=== PATIENT | male | born 1960 | race African-American/Black ===

== ENCOUNTER 2017-06-13 15:19 | Inpatient (IN) | payer OTHER ==
[~2017-06-13] VITALS: Ht 185.4 cm; Wt 91.2 kg
--- NOTE | ~2017-06-13 | HP ---
Unit #: [id number] #: [id number] Patient: TUCKER WHITING [id number] [facility] [address] [place] [address] [id number] I MR#: [id number] NAME: TUCKER WHITING ROOM: 73 Age: 57 Sex: M Admission Date: 06/13/2017 : 1960 Attending Physician: Emery Adkins M.D. Admitting Physician: Emery Adkins M.D. Primary Care Physician: Sonia Renteria M.D. HISTORY AND PHYSICAL HISTORY OF PRESENT ILLNESS Tucker is a 57-year-old male admitted on 06/13/2017 to [facility] for detox from heroin. PAST MEDICAL HISTORY 1. Kidney stones. 2. Prostate cancer. PAST SURGICAL HISTORY None. ALLERGIES None. SOCIAL HISTORY Denies tobacco or alcohol use. Does report daily use of heroin. He is currently single and living alone. FAMILY HISTORY Noncontributory. REVIEW OF SYSTEMS CONSTITUTIONAL: No fever or chills. HEENT: Denies any sore throat, ear pain or runny nose. CARDIOVASCULAR: Denies chest pain, irregular heart rhythm or palpitations. CHEST: Denies shortness of breath or cough. No hemoptysis. GASTROINTESTINAL: Denies nausea, vomiting, diarrhea or chronic constipation. ENDOCRINE: Denies history of increased thirst or urination. No recent significant weight loss or gain. GENITOURINARY: Denies dysuria, frequency, or hematuria. SKIN: Denies any rashes. HEMATOLOGIC: Denies history of increased bleeding or bruising. MUSCULOSKELETAL: Denies any hot, swollen joints. No generalized muscle pain. NEUROLOGIC: Denies problems with vision or speech. No frequent, severe headaches. No numbness, tingling or weakness in any extremities. Denies loss of bladder or bowel control. CURRENT MEDICATIONS None. PHYSICAL EXAMINATION Unit #: [id number] #: [id number] Patient: TUCKER WHITING GENERAL: Alert, oriented, in no acute distress. VITAL SIGNS: Blood pressure 162/101, heart rate 93, respirations 16, temperature 98.0. HEIGHT: 6 feet 1. WEIGHT: 180 pounds. SKIN: Warm and dry without rash or lesion. HEENT: Normocephalic. TMs not viewed. Oral and nasal passages clear. Conjunctivae clear. PERRLA. EOMs intact. NECK: Supple without lymphadenopathy or thyromegaly. HEART: Regular rate and rhythm without murmur. LUNGS: Clear. ABDOMEN: Soft, nontender, without masses or hepatosplenomegaly. : Not done. EXTREMITIES: No evidence of cyanosis, clubbing or edema. Moves all without focal deficit. NEUROLOGICAL: Grossly within normal limits. Cranial Nerves: II: Visual thakkar are intact. III, IV AND : Extraocular movements are intact. Pupils are equal, round and reactive to light. V: Facial sensation is grossly normal. VII: Facial movements and expression are normal. VIII: Auditory acuity grossly intact. IX, X: Uvula is midline. Phonation is normal. XI: Patient shrugs shoulders and turns head normally. XII: Tongue protrudes in the midline. Sensory and Motor Function: Sensory and motor sensation is grossly normal. Motor: moves all extremities well. Coordination: Gait is normal. Deep Tendon Reflexes: Intact. IMPRESSION 1. Psychiatric admission. 2. History of kidney stones. 3. History of prostate cancer. RECOMMENDATIONS PSYCHIATRIC: Per psychiatrist. MEDICAL: No contraindication to participate in facility's activities. MEDICAL PROGNOSIS Good. MEDICAL CONDITION Stable. Dictated by... Alex Olivas/aidan TD: 06/14/2017 22:00 JOB #: [id number] Unit #: [id number] #: [id number] Patient: TUCKER WHITING HISTORY AND PHYSICAL Page 1 of 1 X FARZANA FIGUEROA APRN X HISTORY AND PHYSICAL
--- NOTE | ~2017-06-13 | DS ---
Unit #: [id number] #: [id number] Patient: ALEJO WHITING [id number] [facility] [address] [place] [address] [id number] I MR#: [id number] NAME: ALEJO WHITING ROOM: [facility] Age: 57 Sex: M Admission Date: 06/13/2017 : 1960 Discharge Date: 06/19/2017 Attending Physician: Emery Adkins M.D. Primary Care Physician: Sonia Renteria M.D. DISCHARGE SUMMARY REASON FOR ADMISSION Opioid abuse. DIAGNOSTIC STUDIES LABORATORY RESULTS: Urine drug screen positive for amphetamine, marijuana, and opiates. HOSPITAL COURSE The patient was admitted to inpatient unit on 06/13/2017 and discharged on 06/19/2017. The patient was treated on the inpatient unit with expressive therapy, chemical dependency group, medication management, psychoeducation, and structured milieu. The patient also was given TB skin test which was negative. The patient was treated with detox protocol, responds with the treatment. Subsequently, the patient was discharged with a plan to follow up in outpatient program. DISCHARGE MEDICATIONS None. DISCHARGE DIAGNOSES Psychiatric: Opioid use disorder, severe, F11.20; cannabis abuse disorder, moderate to severe, F12.20; amphetamine use disorder, severe, F15.20; mood disorder, not otherwise specified, F32.9. Secondary diagnosis: Deferred. Medical diagnosis: Chronic back pain, kidney stone, history of prostate cancer. Stressors: Psychosocial stressors. DISCHARGE INSTRUCTIONS The patient to follow up in outpatient clinic as per social services manager. CONDITION ON DISCHARGE The patient was pleasant and cooperative. Denied any psychotic symptom or any suicidal ideation. PROGNOSIS Guarded. DIET AND ACTIVITY As tolerated. Unit #: [id number] #: [id number] Patient: ALEJO WHITING Dictated by... Amara RandallC/jermaine TD: 06/19/2017 18:32 JOB #: [id number] DISCHARGE SUMMARY Page 1 of 1 X Emery Adkins MD X DISCHARGE SUMMARY
--- NOTE | ~2017-06-13 | PN ---
Unit #: [id number] #: [id number] Patient: TUCKER WHITING [id number] [facility] [address] [place] [address] [id number] I MR#: [id number] NAME: TUCKER WHITING ROOM: 73 Age: 57 Sex: M Admission Date: 06/13/2017 : 1960 Attending Physician: Emery Adkins M.D. Admitting Physician: Emery Adkins M.D. Primary Care Physician: Amara Tejeda PROGRESS NOTES DATE 06/14/2017 DISCUSSION Mr. Tucker Whiting is a 57-year-old male seen on 06/14/2017. Patient interviewed. Chart reviewed. Obtained information from nursing staff. Patient withdrawn, isolative, flat affect, sad, dysphoric. Reported having withdrawal symptoms, anxious, nervous, cooperative on the unit, adjusting fairly well to unit rules. Complete review of system unremarkable. MENTAL STATUS EXAMINATION General appearance, patient dressed casually. Attention span, concentration fair. Oriented in place and person. Mood and affect sad, depressed. Speech monotone. Thought process concrete. Patient denied any thoughts of harming self or others. Patient denied any thoughts of harming self or others or any psychotic symptoms. Recent and remote memory poor. Insight and judgement poor. DIAGNOSIS Opiate use disorder, severe. ASSESSMENT/PLAN Advised to continue with current medications and therapeutic protocol. If needed, consider further adjustment of medication. Dictated by... Amara Randall/aidan TD: 06/15/2017 15:57 JOB #: [id number] Unit #: [id number] #: [id number] Patient: TUCKER WHITING VONNIE PROGRESS NOTES Page 1 of 1 X Emery Adkins MD X PROGRESS NOTE
--- NOTE | ~2017-06-13 | PN ---
Unit #: [id number] #: [id number] Patient: TUCKER WHITING [id number] [facility] [address] [place] [address] [id number] I MR#: [id number] NAME: TUCKER WHITING ROOM: [facility] Age: 57 Sex: M Admission Date: 06/13/2017 : 1960 Attending Physician: Emery Adkins M.D. Admitting Physician: Emery Adkins M.D. Primary Care Physician: Sonia Renteria M.D. PEANIK PROGRESS NOTES DATE 06/18/2017 DISCUSSION Tucker Whiting is a 57-year-old male, seen on 06/18/2017. The patient interviewed, chart reviewed, and obtained information from the nursing staff. The patient was compliant and cooperative, redirectable. Vital signs, stable, 98.4, 64, 142/92. The patient making progress, compliant and cooperative, maintained safe behavior. REVIEW OF SYSTEMS Complete review of systems unremarkable. MENTAL STATUS EXAMINATION General appearance: Patient dressed in hospital attire. Attention span and concentration, fair. Oriented in time, place, and person. Mood and affect, sad and dysphoric. Speech, regular rate. Thought process, goal-directed. The patient denied any thoughts of harming self or others or any psychotic symptoms. Recent and remote memory, poor. Insight and judgment, poor. The patient's TB skin test is negative after 72 hours. DIAGNOSES 1. Mood disorder, NOS. 2. Opiate use disorder, severe. ASSESSMENT/PLAN Advised to continue with the current medication and therapeutic protocol, and if needed consider further adjustment of medication. Dictated by... Amara Randall/apolinar Unit #: [id number] #: [id number] Patient: TUCKER WHITING TD: 06/20/2017 06:24 JOB #: [id number] VONNIE PROGRESS NOTES Page 1 of 1 X Emery Adkins MD PROGRESS NOTE
--- NOTE | ~2017-06-13 | CO ---
Unit #: [id number] #: [id number] Patient: TUCKER WHITING [id number] [place] [address] [id number] I MR#: [id number] NAME: TUCKER WHITING ROOM: [facility] Age: 57 Sex: M Admission Date: 06/13/2017 : 1960 Attending Physician: Emery Adkins M.D. Primary Care Physician: Sonia Renteria M.D. Consultation Date: 06/14/2017 CONSULTATION REPORT HISTORY OF PRESENT ILLNESS Tucker reports right-sided lower back pain near his kidneys for the past several weeks. He reports a decrease in urination. No body aches or chills. No fever He does report a history of kidney stones. He has not noticed any blood in his urine. He is not waking up to urinate. He also has elevated blood pressure since he has been here, his blood pressures have been 162/101, 150/93, 117/71, 140/89, and 123/72. He is receiving clonidine for detox and since starting that his blood pressures have started to come down. He has no headache or chest pain. No other complaints. PHYSICAL EXAMINATION CARDIAC: Regular rate and rhythm. No murmurs, gallops, or rubs. RESPIRATORY: Clear to auscultation bilaterally. ABDOMEN: Bowel sounds positive in all quadrants. No abdominal tenderness to palpation. He does report right-sided flank pain with palpation. ASSESSMENT AND PLAN Right-sided flank pain with a history of kidney stones. CBC and CMP are all pending. Tucker has been refusing these labs. He was encouraged to allow labs in the morning. We will begin strict I's and Os. Please notify, if he has less than 150 mL of urine output in 4 hours. Encourage p.o. hydration. Check his temperature q.8 hours while awake and strain all of his urine. Please notify me, if any abnormal results. Dictated by... Alex Olivas/jermaine TD: 06/15/2017 02:17 JOB #: [id number] Unit #: [id number] #: [id number] Patient: TUCKER WHITING CONSULTATION REPORT Page 1 of 1 X FARZANA FIGUEROA APRN CONSULTATION REPORT
--- NOTE | ~2017-06-13 | CO ---
Unit #: [id number] #: [id number] Patient: TUCKER WHITING [id number] [place] [address] [id number] I MR#: [id number] NAME: TUCKER WHITING ROOM: [facility] Age: 57 Sex: M Admission Date: 06/13/2017 : 1960 Attending Physician: Emery Adkins M.D. Primary Care Physician: Sonia Renteria M.D. Consultation Date: 06/15/2017 CONSULTATION REPORT HISTORY OF PRESENT ILLNESS Tucker is seen yesterday and we were attempting to rule out kidney stone. He is complaining of some right-sided pain and reporting that he had not urinated much during the day. He was started on I's and O's and temp q.8 hours, however, last night, he started complaining of severe abdominal pain and he was transferred to the ER where CT scan showed nonocclusive stones. Nitrites are negative. Blood is negative. Specific gravity 1.012 and pH of 6.5, BUN 12.2, and creatinine 0.9. White blood cells 3.3, hemoglobin 12.4. This morning, he has no complaints. PHYSICAL EXAMINATION CARDIAC: Regular rate and rhythm. No murmur, gallop, or rub. RESPIRATORY: Clear to auscultation bilaterally. ABDOMEN: Bowel sounds positive in all 4 quadrants. No abdominal tenderness to palpation. No CVA tenderness or flank pain. ASSESSMENT AND PLAN Abdominal pain. At this time, all of his labs are normal and he is reporting that he feels much better. We will discontinue I's and O's and his temp q.8 hours. Dictated by... Linda Edwards A.P.R.N. for Amara Sam/jermaine TD: 06/18/2017 23:37 JOB #: [id number] CONSULTATION REPORT Page 1 of 1 X LINDA FIGUEROA APRN CONSULTATION REPORT
--- NOTE | ~2017-06-13 | PN ---
Unit #: [id number] #: [id number] Patient: TUCKER WHITING [id number] [facility] [address] [place] [address] [id number] I MR#: [id number] NAME: TUCKER WHITING ROOM: [facility] Age: 57 Sex: M Admission Date: 06/13/2017 : 1960 Attending Physician: Emery Adkins M.D. Admitting Physician: Emery Adkins M.D. Primary Care Physician: Amara Tejeda PROGRESS NOTES DATE 06/16/2017 DISCUSSION Tucker Whiting is a 57-year-old male seen on 06/16/2017. The patient report still feeling sad, depressed, anxious, having withdrawal symptoms from opiates. The patient reported that he needs to get a TB skin test so that he go to [facility]. Complete review of systems unremarkable. MENTAL STATUS EXAMINATION General appearance, the patient dressed casually. Attention span and concentration fair. Oriented to time, place and person. Mood and affect sad, dysphoric. Speech monotone. Thought process concrete. The patient denied any thoughts of harming self or others. Recent and remote memory poor. Insight and judgement poor. DIAGNOSES 1. Amphetamine use disorder moderate. 2. Cannabis abuse moderate. 3. Opioid use disorder moderate. 4. Mood disorder NOS. ASSESSMENT/PLAN Advise to continue with current medication and therapeutic protocol. If needed consider further adjustment of medication. Also ordered TB skin test to be read in 48 hours and 72 hours. Plan to consider discharge on Monday to [facility]. Dictated by... Amara Randall/patricia TD: 06/18/2017 23:52 JOB #: [id number] Unit #: [id number] #: [id number] Patient: TUCKER WHITING VONNIE PROGRESS NOTES Page 1 of 1 X Emery Adkins MD PROGRESS NOTE
--- NOTE | ~2017-06-13 | PN ---
Unit #: [id number] #: [id number] Patient: TUCKER WHITING [id number] [facility] [address] [place] [address] [id number] I MR#: [id number] NAME: TUCKER WHITING ROOM: [facility] Age: 57 Sex: M Admission Date: 06/13/2017 : 1960 Attending Physician: Emery Adkins M.D. Admitting Physician: Emery Adkins M.D. Primary Care Physician: Amara Tejeda PROGRESS NOTES DATE 06/17/2017 DISCUSSION Mr. Tucker Whiting is a 57-year-old male, seen on 06/17/2017. The patient interviewed, chart reviewed, and obtained information from the nursing staff. The patient received TB skin test yesterday. The patient reports that he would like to go to a Suboxone clinic. Vital signs stable at 98.4, 62, 142/85. REVIEW OF SYSTEMS Complete review of systems unremarkable. MENTAL STATUS EXAMINATION General appearance: Patient dressed casually. Attention span and concentration, fair. Oriented in time, place, and person. Mood and affect, labile. Speech, monotone. Thought process, concrete. The patient denied any thoughts of harming self or others. Recent and remote memory, poor. Insight and judgment, poor. DIAGNOSES 1. Opiate use disorder, severe. 2. Mood disorder, NOS. ASSESSMENT/PLAN Advised to continue with the current medication and therapeutic protocol, and if needed consider further adjustment of medication. Dictated by... Amara Randall/apolinar TD: 06/19/2017 07:30 JOB #: [id number] Unit #: [id number] #: [id number] Patient: TUCKER WHITING DEISINIK PROGRESS NOTES Page 1 of 1 X Emery Adkins MD X PROGRESS NOTE
--- NOTE | ~2017-06-13 | PA ---
Unit #: [id number] #: [id number] Patient: TUCKER WHITING [id number] [facility] [address] [place] [address] [id number] I MR#: [id number] NAME: TUCKER WHITING ROOM: 73 Age: 57 Sex: M Admission Date: 06/13/2017 : 1960 Date of Assessment: 06/14/2017 Attending Physician: Emery Adkins M.D. Admitting Physician: Emery Adkins M.D. Primary Care Physician: Sonia Renteria M.D. PSYCHIATRIC ASSESSMENT INFORMANTS The patient reliability, fair informant and chart reliability, good. CHIEF COMPLAINT Substance abuse and depression. HISTORY OF PRESENT ILLNESS Mr. Tucker Whiting is a 57-year-old male, presented with the above-mentioned complaint. The patient reported currently homeless. Reported opioid use, daily heroin use, 1 to 2 g IV for the last 3 months. The patient scored 22 on COWS score. The patient denied any homicidal ideation or any psychotic symptom. The patient also feeling sad and depressed. The patient reported having withdrawal symptom. Reported tobacco use, age of onset 13 and opioid, age of onset 57. History of blackout, hepatitis, withdrawal symptom, and IV drug use. The patient reported withdrawal symptoms such as abdominal cramping, muscle cramping, diaphoresis, diarrhea, depressed mood, irritability, and nervousness. Needing inpatient admission at this time for psychiatric stabilization. PAST PSYCHIATRIC HISTORY Unknown for any history of any previous treatment. FAMILY HISTORY AND SOCIAL HISTORY The patient currently homeless. Poor support system. No history of abuse. Denied any legal problems. No known family history of any psychiatric illness known at this time. MEDICAL HISTORY Remarkable for hypertension. Musculoskeletal; muscle strength and tone, no atrophy or abnormal movement. Gait normal. MEDICATION HISTORY None. ALLERGIES No known drug allergies. SUBSTANCE ABUSE HISTORY Please see above. REVIEW OF SYSTEMS HEENT: Eyes, clear. Ears, nose, mouth, and throat; clear. CARDIOVASCULAR: Unremarkable. Unit #: [id number] #: [id number] Patient: TUCKER WHITING RESPIRATORY: Unremarkable. GI: Unremarkable. : Unremarkable. SKIN: Unremarkable. LYMPH NODE: Unremarkable. NEUROLOGIC: Unremarkable. ENDOCRINE: Unremarkable. HEMATOLOGIC: Unremarkable. ALLERGIC/IMMUNOLOGIC: Unremarkable. MUSCULOSKELETAL: Muscle strength and tone, no atrophy or abnormal movement. Gait normal. MENTAL STATUS EXAMINATION CONSTITUTIONAL: Measurement of vital signs; temperature 98.0, heart rate 70, respiratory rate 16, and blood pressure 147/92. GENERAL APPEARANCE: The patient dressed casually. No facial deformity noted. MUSCULOSKELETAL: Please see above. PSYCHIATRIC EXAMINATION Description of speech; regular rate, normal volume, normal articulation, and coherent. Description of thought process, goal directed. Description of association, intact. Description of abnormal psychotic thinking; the patient denied any hallucinations or delusions, but mood lability, sad, and depressed. Denied any suicidal or homicidal ideation. Description of the patient's judgment: Concerning everyday activity, poor. Social situation, poor. Concerning psychiatric condition, poor. Complete mental status examination; oriented in time, place, and person. Recent and remote memory, fair. Attention span and concentration, fair. Language, able to name object and repeat phrases. Fund of knowledge, aware of current event and passive vocabulary intact. Mood and affect, sad and dysphoric. Insight and judgment, fair to poor. ASSETS AND LIABILITIES Assets, the patient is articulate and able to take care of his ADL. Liability, history of substance abuse and depression. ADMITTING DIAGNOSES Psychiatric: Opioid use disorder, severe, F11.20 and mood disorder, not otherwise specified, F32.9. Secondary diagnosis: Deferred. Medical diagnosis: Hypertension. Stressors: Psychosocial stressor and homelessness. PSYCHIATRIC PLAN AND TREATMENT GOAL AND DISCHARGE PLAN 1. Advised to admit the patient on the inpatient unit. Provide safe, supportive, and structured environment. 2. Ordered labs; CBC, CMP, UA, and UDS. 3. Detox protocol and detox monitoring. If needed, consider medication for depression. The patient to attend all the programing, group therapy, individual therapy, and chemical dependency group. TREATMENT GOAL To attain euthymic mood, gain insight into his problem, and learn coping Unit #: [id number] #: [id number] Patient: TUCKER WHITING belkys. DISCHARGE PLAN Plan to stabilize the patient and consider followup in outpatient program. ESTIMATED LENGTH OF STAY 3 to 5 days. Dictated by... Emery Adkins M.D. VENITA/jermaine TD: 06/14/2017 16:26 JOB #: [id number] PSYCHIATRIC ASSESSMENT Page 1 of 1 X Emery Adkins MD PSYCHIATRIC ASSESSMENT
--- NOTE | ~2017-06-13 | PN ---
Unit #: [id number] #: [id number] Patient: TUCKER WHITING [id number] [facility] [address] [place] [address] [id number] I MR#: [id number] NAME: TUCKER WHITING ROOM: 73 Age: 57 Sex: M Admission Date: 06/13/2017 : 1960 Attending Physician: Emery Adkins M.D. Admitting Physician: Emery Adkins M.D. Primary Care Physician: Amara Tejeda PROGRESS NOTES DATE OF SERVICE: 06/16/2017 DISCUSSION Tucker Whiting is a 57-year-old male, seen on 06/16/2017. The patient reports feeling sad, depressed, anxious, having withdrawal symptoms from opioids. The patient reports that he needs to get his TB skin test, so that he can go to [facility]. REVIEW OF SYSTEMS Complete review of systems unremarkable. MENTAL STATUS EXAMINATION General appearance, the patient dressed casually. Attention span and concentration, fair. Oriented in time, place, and person. Mood and affect; sad and dysphoric. Speech, monotone. Thought process, concrete. The patient denied any thoughts of harming self or others. Recent and remote memory, poor. Insight and judgment, poor. DIAGNOSES Amphetamine use disorder, moderate. Cannabis abuse, moderate. Opioid use disorder, moderate. Mood disorder, not otherwise specified. ASSESSMENT AND PLAN Advised to continue with current medication and therapeutic protocol. If needed, consider further adjustment of medication. Also, ordered a TB skin test to be read within 48 hours and 72 hours. We will plan to consider discharge on Monday to [facility]. Dictated by... Amara Randall/jermaine TD: 06/19/2017 00:17 JOB #: [id number] Unit #: [id number] #: [id number] Patient: TUCKER WHITING DEISINIK PROGRESS NOTES Page 1 of 1 X Emery Adkins MD PROGRESS NOTE
--- NOTE | ~2017-06-13 | PN ---
Unit #: [id number] #: [id number] Patient: TUCKER WHITING [id number] [facility] [address] [place] [address] [id number] I MR#: [id number] NAME: TUCKER WHITING ROOM: 73 Age: 57 Sex: M Admission Date: 06/13/2017 : 1960 Attending Physician: Emery Adkins M.D. Admitting Physician: Emery Adkins M.D. Primary Care Physician: Amara Tejeda NOTES DATE OF SERVICE 06/15/2017 DISCUSSION Ms. Tucker Whiting is a 57-year-old male. The patient interviewed, chart reviewed. Obtained information from nursing staff. The patient continues to report feeling anxious, nervous, sad, depressed, withdrawn. The patient still having withdrawal symptoms. The patient also reported pain in his back and has spasm. Currently on detox protocol. Vital signs: 98.0, 56, 16. Blood pressure 113/68. Complete Review of Systems: Unremarkable. MENTAL STATUS EXAMINATION General Appearance: The patient dressed casually. Attention span, concentration: Fair. Oriented in place and person. Mood and affect labile. Speech: Monotone. Thought process: [place]. The patient denied any thoughts of harming self or others. Recent and remote memory: Poor. Insight and judgment: Poor. DIAGNOSES 1. Opiate use disorder, severe. 2. Mood disorder not otherwise specified. ASSESSMENT/PLAN Advised to continue with current medication and therapeutic protocol. If needed, consider further adjustment of medication. Advised Motrin 600 mg t.i.d. p.r.n. for pain. Dictated by... Amara Randall/anatoly TD: 06/16/2017 12:02 JOB #: [id number] Unit #: [id number] #: [id number] Patient: TUCKER WHITING LUIS NOTES Page 1 of 1 X Emery Adkins MD PROGRESS NOTE
[~2017-06-13 15:19] MED LIST: CALAN PO; CETIRIZINE HCL10 MG PO; CITRATE OF MAG296 M1 PO; CLONIDINE PO; HCTZ PO; HYDROCHLOROTHIA25 MG PO; IBUPROFEN800 MG PO; LORTAB 5/500 TA1 TA1 PO; MOTRIN400 MG PO; PHENERGAN25 MG PO; PRILOSEC20 MG PO; VOLTAREN50 MG PO; ZYPREXA PO; ZYPREXA10 MG PO
[2017-06-15 09:42] LABS: URINE APPEARANCE CLOUDY; URINE BLOOD NEG (NEG); URINE COLOR YELLOW; URINE GLUCOSE NORM (NORM); URINE KETONE NEG (NEG); URINE LEUKOCYTE ESTERASE NEG (NEG); URINE NITRATE NEG (NEG); URINE PROTEIN NEG (NEG); URINE SPECIFIC GRAVITY 1.015 (1.003-1.035); URINE UROBILINOGEN 8 MG/DL (NORM)
[2017-06-15 09:48] LABS: URINE BILIRUBIN NEG (NEG)
[2017-06-15 10:31] LABS: AMPHETAMINE POS (NEG); BARBITURATES NEG (NEG); BENZODIAZEPINES NEG (NEG); COCAINE NEG (NEG); MARIJUANA POS (NEG); OPIATES POS (NEG); TRICYCLIC ANTIDEPRESSANTS NEG (NEG); U METHADONE NEG (NEG)
[2017-06-15 12:29] LABS: BASOPHIL% 0.5 % (0-2.5); DIFF IND NO; EOSINOPHIL# 0.1 X10e3 (0-0.7); HEMOGLOBIN 12.4 gm/dL (13.0-16.0); LYMPHOCYTE# 0.9 X10e3 (1.0-3.5); LYMPHOCYTE% 28.7 % (17.0-45.0); MEAN CELL VOLUME 86.9 FL (83-96); MEAN CORPUSCULAR HEMOGLOBIN 27.7 PG (28-34); MEAN CORPUSCULAR HGB CONC 31.9 g/dL (30-36); MEAN PLATELET VOLUME 7.4 FL (6.5-11.5); MONOCYTE# 0.3 X10e3 (0-1.0); MONOCYTE% 8.9 % (3.0-12.0); NEUTROPHIL# 1.9 X10e3 (1.5-7.1); NEUTROPHIL% 58.9 % (40-75); PLATELET COUNT 262 X10e3 (140-420); RED BLOOD COUNT 4.49 X10e (3.90-5.60); RED CELL DISTRIBUTION WIDTH 13.4 % (11.0-15.5); WHITE BLOOD COUNT 3.3 X10e3 (4.0-10.5)
[2017-06-15 12:42] LABS: ALBUMIN SERUM 3.2 g/dL (3.5-5.0); BILIRUBIN,TOTAL 0.5 mg/dL (0.2-2.0); BUN/CREATININE RATIO 12.22; CALCIUM SERUM 9.2 mg/dL (8.4-10.2); CREATININE SERUM 0.9 mg/dL (0.6-1.4); GLOM FILT RATE Estimated 110.3 mL/min (>60); POTASSIUM 4.4 mmol/L (3.5-5.1); PROTEIN TOTAL SERUM 5.8 g/dL (6.0-8.3)
== END 2017-06-19 10:54 | DRG 897 ==
LOC: P1E 17:07
PROVIDERS: Psychiatry & Neurology Psychiatry
PROC: HZ2ZZZZ Detoxification Services for Substance Abuse Treatment (ICD-10-PCS; principal; 2017-06-13)
DX: F11.20 Opioid dependence, uncomplicated (principal); F15.20 Other stimulant dependence, uncomplicated; I10 Essential (primary) hypertension; F39 Unspecified mood [affective] disorder; F32.9 Major depressive disorder, single episode, unspecified; Z85.46 Personal history of malignant neoplasm of prostate; Z87.442 Personal history of urinary calculi; F10.20 Alcohol dependence, uncomplicated
CPT/HCPCS: 80053; 80307; 81003; 85025; 86592

== ENCOUNTER 2017-06-14 23:57 | Emergency (ER) | payer OTHER ==
[~2017-06-14] VITALS: Ht 185.4 cm; Wt 81.6 kg
--- NOTE | ~2017-06-14 | CT4 ---
[facility] A Service of [facility] RADIOLOGY TEXT RESULTS PATIENT: ALEJO WHITING LOCATION: [facility] : 62 UNIT #: [id number] AGE: [address]: Tone Tobar MD SEX: M ORDER DR: [id number] [place], [place] [address] [id number] MR#: [id number] Acc #: [id number] NAME: ALEJO WHITING : 1960 SEX: M STUDY DATE/TIME: 06/15/2017 1:26 UNIT: [facility] ROOM: STUDY DESCRIPTION: CT Abd and Pelv Wo Cont Attending Physician: Tone Tobar M.D. Ordering Physician: Tone Tobar M.D. Primary Care Physician: Sonia Renteria M.D. MEDICAL IMAGING REPORT This report is preliminary unless electronic signature is present EXAM CT abdomen and pelvis without contrast. INDICATIONS Left flank pain, generalized abdominal pain for the past 2-[address] of the abdomen and pelvis. This CT exam was performed with one or more of the following radiation dose reduction techniques: automatic exposure control, adjustment of mA and/or kV according to patient size, and iterative reconstruction. COMPARISON 07/10/2012 FINDINGS ABDOMEN WITHOUT CONTRAST: Included lung bases clear. Liver, spleen, adrenal glands, pancreas unremarkable. Gallbladder contracted. Moderate colonic stool burden. Bowel loops nondilated. There are bilateral nonobstructing renal calculi, largest 5 mm on the right. No radiodense ureteral calculus or hydronephrosis. PELVIS WITHOUT CONTRAST: No radiodense bladder calculus. Brachytherapy seeds, prostate gland. No aggressive-appearing bone lesion. IMPRESSION 1. No acute findings. 2. Moderate colonic stool. 3. Nonobstructing renal calculi. [facility] A Service of [facility] RADIOLOGY TEXT RESULTS PATIENT: ALEJO WHITING LOCATION: [facility] : 62 UNIT #: [id number] AGE: [address]: Tone Tobar MD SEX: M ORDER DR: Dictated by... James Hebert M.D. THIS IS AN ELECTRONICALLY VERIFIED REPORT James Hebert M.D. at 06/15/2017 9:52 PM MAGI/debra TD: 06/15/2017 11:21 JOB #: [id number] MEDICAL IMAGING REPORT Page 1 of 1 COPY
[2017-06-15 02:38] LABS: URINE SOURCE CLEAN CATCH
[2017-06-15 02:45] LABS: URINE APPEARANCE CLEAR; URINE BILIRUBIN NEG (NEG); URINE BLOOD NEG (NEG); URINE COLOR YELLOW; URINE GLUCOSE NEG (NEG); URINE KETONE NEG (NEG); URINE LEUKOCYTE ESTERASE TRACE (NEG); URINE NITRATE NEG (NEG); URINE PH 6.5 (5-8); URINE PROTEIN NEG (NEG); URINE SPECIFIC GRAVITY 1.012 (1.003-1.035)
[2017-06-15 02:52] LABS: CULTURE INDICATED? YES; URBCS1 AUWI 0-2 /[HPF] (0-2); URINE BACTERIA AUWI NEG (NEGATIVE); URINE SQUAMOUS EPITHELIAL CELL NONE SEEN /[HPF]
== END 2017-06-15 05:47 | disposition home or self-care (01) ==
LOC: CED 23:57
PROVIDERS: Emergency Medicine
DX: M54.5 Low back pain (principal); F11.23 Opioid dependence with withdrawal; Z87.442 Personal history of urinary calculi; F17.200 Nicotine dependence, unspecified, uncomplicated
CPT/HCPCS: 74176; 81003; 87086; 96372; 99284; J1885